=== PATIENT | male | born 1940 | race Caucasian/White ===

== ENCOUNTER 2023-11-18 10:19 | Inpatient (IN) | payer MEDICARE ==
[2023-11-18] MEDS ORDERED: Ondansetron ODT 4 MG TAB PO PRN (14:55)
[2023-11-18] MEDS ORDERED: Ondansetron PF 4 MG/2 ML Vial IVP PRN (14:55)
[2023-11-18] MEDS ORDERED: Acetaminophen 650 MG Suppository PR PRN (14:55)
[2023-11-18] MEDS ORDERED: Senokot S 8.6-50 MG TAB PO PRN (14:55)
[2023-11-18] MEDS ORDERED: Bisacodyl 10 MG SUPP PR PRN (14:55)
[2023-11-18] MEDS ORDERED: Electrolyte Replacement Protocol 1 EACH FS SCH (15:15)
[2023-11-18] MEDS ORDERED: Ventolin HFA Inhaler 60 PUFF INHALER INH PRN (15:31)
[2023-11-18 16:07] LABS: Magnesium 1.7 mg/dL (1.6-2.6)
[2023-11-18] MEDS: methylPREDNISolone Sod Succ 40 MG VIAL IVP SCH (16:12)
[2023-11-18] MEDS: Magnesium 2 GM/50 ML(in water) 2 GM in Premix 1 BAG IVPB SCH (16:12)
[2023-11-18] MEDS: LevoFLOXacin 750 mg/D5W 750 MG in Premix 1 BAG IVPB SCH (16:12)
[2023-11-18] MEDS: Furosemide 40 MG (4 mL) VIAL SLOW IVP SCH (16:13)
[2023-11-18] MEDS: Mometasone/Formoterol 200/5 60 PUFF INH SCH (20:50)
[2023-11-18] MEDS: Ipratropium/Albuterol 3 ML NEB NEB SCH (20:50)
[2023-11-18] MEDS ORDERED: FLU VACC QS2023(65UP)/MF59C/PF 60 MCG/0.5 ML SYRINGE IM ONE (21:30)
[2023-11-18] MEDS: Famotidine/PF 20 mg/2ml Vial SLOW IVP SCH (22:06)
[2023-11-18] MEDS: Apixaban 2.5 MG TAB PO SCH (22:27)
[2023-11-18] MEDS: Atorvastatin Calcium 10 MG TAB PO SCH (22:27)
[2023-11-19 06:04] LABS: #Monocytes 0.7 10x3/uL (0.0-1.1); #Neutrophils 7.9 10x3/uL (1.5-8.4); %Basophils 0.2 % (0.0-2.0); %Eosinophils 0.1 % (0.0-6.0); %Lymphocytes 15.8 % (18.0-47.0); %Monocytes 6.8 % (0.0-10.0); %Neutrophils 76.7 % (40.0-75.0); Hematocrit 35.5 % (38.8-50.0); Hemoglobin 11.8 g/dL (13.5-17.5); Mean Corpuscular HGB CONC 33.2 g/dL (32.0-36.0); Mean Corpuscular Hemoglobin 27.6 pg (27.0-33.0); Mean Corpuscular Volume 83.1 fl (81.2-95.1); Mean Platelet Volume 9.3 fl (7.4-10.4); Platelet Count 475 10x3/uL (150-450); RBC Distribution Width 16.9 % (11.5-14.5); Red Blood Cell (RBC) Count 4.27 10x6/uL (4.32-5.72); White Blood Cell (WBC) Count 10.3 10x3/uL (3.5-10.5)
[2023-11-19 06:06] LABS: Phosphorus 4.5 mg/dL (2.3-4.7)
[2023-11-19 06:08] LABS: Anion Gap 19 mmol/L (10-20); BUN (Urea Nitrogen) 23 mg/dL (8.4-25.7); Calc. Creatinine Clearance 29 mL/min (70-130); Calcium 8.4 mg/dL (7.8-10.44); Carbon Dioxide 20 mmol/L (23-31); Chloride 106 mmol/L (98-107); Estimated GFR 34; Glucose 119 mg/dL (83-110); Potassium 3.6 mmol/L (3.5-5.1); Sodium 141 mmol/L (136-145)
[2023-11-19] MEDS: Furosemide 40 MG (4 mL) VIAL SLOW IVP SCH (09:35)
[2023-11-19] MEDS: methylPREDNISolone Sod Succ 40 MG VIAL IVP SCH (09:35)
[2023-11-19] MEDS: Dutasteride 0.5 MG CAP PO SCH (09:37)
[2023-11-19] MEDS: Famotidine/PF 20 mg/2ml Vial SLOW IVP SCH (21:50)
[2023-11-19] MEDS: QUEtiapine 25 MG TAB PO SCH (21:51)
[2023-11-20 06:44] LABS: #Monocytes 0.7 10x3/uL (0.0-1.1); #Neutrophils 12.3 10x3/uL (1.5-8.4); %Basophils 0.1 % (0.0-2.0); %Lymphocytes 7.6 % (18.0-47.0); Hematocrit 33.4 % (38.8-50.0); Hemoglobin 11.5 g/dL (13.5-17.5); Mean Corpuscular HGB CONC 34.4 g/dL (32.0-36.0); Mean Corpuscular Hemoglobin 28.7 pg (27.0-33.0); Mean Corpuscular Volume 83.3 fl (81.2-95.1); Mean Platelet Volume 9.3 fl (7.4-10.4); Platelet Count 443 10x3/uL (150-450); RBC Distribution Width 17.1 % (11.5-14.5); Red Blood Cell (RBC) Count 4.01 10x6/uL (4.32-5.72); White Blood Cell (WBC) Count 14.2 10x3/uL (3.5-10.5)
[2023-11-20 07:05] LABS: Anion Gap 16 mmol/L (10-20); BUN (Urea Nitrogen) 29 mg/dL (8.4-25.7); Calc. Creatinine Clearance 27 mL/min (70-130); Calcium 8.6 mg/dL (7.8-10.44); Carbon Dioxide 22 mmol/L (23-31); Chloride 107 mmol/L (98-107); Estimated GFR 31; Glucose 156 mg/dL (83-110); Magnesium 2.1 mg/dL (1.6-2.6); Potassium 3.3 mmol/L (3.5-5.1); Sodium 142 mmol/L (136-145)
[2023-11-20] MEDS: Potassium Chloride 20 MEQ TAB PO SCH (10:02)
[2023-11-20] MEDS: Multivitamin W/ Minerals 1 TAB PO SCH (10:02)
[2023-11-20] MEDS: Aspirin 81 mg Enteric Coated Tablet PO SCH (10:02)
[2023-11-20] MEDS: LevoFLOXacin 500 mg/D5W 500 MG in Premix 1 BAG IVPB SCH (17:19)
[2023-11-20] MEDS: Acetaminophen 325 MG TAB PO PRN (21:44)
[2023-11-21 06:05] LABS: Anion Gap 19 mmol/L (10-20); BUN (Urea Nitrogen) 32 mg/dL (8.4-25.7); Calc. Creatinine Clearance 25 mL/min (70-130); Calcium 8.4 mg/dL (7.8-10.44); Carbon Dioxide 20 mmol/L (23-31); Chloride 107 mmol/L (98-107); Estimated GFR 31; Glucose 122 mg/dL (83-110); Potassium 3.2 mmol/L (3.5-5.1); Sodium 143 mmol/L (136-145)
[2023-11-21 06:09] LABS: #Monocytes 1.5 10x3/uL (0.0-1.1); #Neutrophils 13.3 10x3/uL (1.5-8.4); %Basophils 0.1 % (0.0-2.0); %Lymphocytes 9.6 % (18.0-47.0); %Monocytes 8.8 % (0.0-10.0); %Neutrophils 80.9 % (40.0-75.0); Hemoglobin 11.1 g/dL (13.5-17.5); Mean Corpuscular HGB CONC 32.6 g/dL (32.0-36.0); Mean Corpuscular Hemoglobin 27.8 pg (27.0-33.0); Mean Platelet Volume 9.5 fl (7.4-10.4); Platelet Count 469 10x3/uL (150-450); RBC Distribution Width 17.8 % (11.5-14.5); White Blood Cell (WBC) Count 16.5 10x3/uL (3.5-10.5)
[2023-11-21] MEDS ORDERED: Potassium Chloride 20 MEQ TAB PO SCH (08:00)
[2023-11-21] MEDS: Potassium Bicarbonate/Cit Ac 20 MEQ TAB PO SCH (09:42)
[2023-11-21] MEDS: predniSONE 20 MG TAB PO SCH (09:44)
[2023-11-21] MEDS: Amlodipine 5 MG TAB PO SCH (09:45)
[2023-11-21] MEDS: Tamsulosin HCl 0.4 MG CAP PO SCH ×2 (09:47→20:58)
[2023-11-21] MEDS: 1/2 NS IV SCH (09:55)
[2023-11-21] MEDS: POTASSIUM IV SCH (09:55)
[2023-11-21] MEDS: Lansoprazole 3 MG/ML ORAL SUSPENSION PO SCH (11:58)
[2023-11-21] MEDS: QUEtiapine 25 MG TAB PO SCH (15:20)
[2023-11-21] MEDS ORDERED: Electrolyte Replacement Protocol FS PRN (17:45)
[2023-11-21] MEDS: Metoprolol Tartrate 25 MG TAB PO SCH (20:58)
[2023-11-22 05:59] LABS: Anion Gap 14 mmol/L (10-20); BUN (Urea Nitrogen) 29 mg/dL (8.4-25.7); Calc. Creatinine Clearance 30 mL/min (70-130); Calcium 8.3 mg/dL (7.8-10.44); Carbon Dioxide 24 mmol/L (23-31); Chloride 110 mmol/L (98-107); Estimated GFR 38; Glucose 114 mg/dL (83-110); Potassium 3.9 mmol/L (3.5-5.1); Sodium 144 mmol/L (136-145)
[2023-11-22 06:06] LABS: #Monocytes 1.5 10x3/uL (0.0-1.1); #Neutrophils 11.2 10x3/uL (1.5-8.4); %Basophils 0.2 % (0.0-2.0); %Eosinophils 0.1 % (0.0-6.0); %Lymphocytes 13.8 % (18.0-47.0); %Monocytes 9.9 % (0.0-10.0); %Neutrophils 75.3 % (40.0-75.0); Hematocrit 38.8 % (38.8-50.0); Hemoglobin 12.3 g/dL (13.5-17.5); Mean Corpuscular HGB CONC 31.7 g/dL (32.0-36.0); Mean Corpuscular Hemoglobin 27.2 pg (27.0-33.0); Mean Corpuscular Volume 85.7 fl (81.2-95.1); Mean Platelet Volume 9.1 fl (7.4-10.4); Platelet Count 455 10x3/uL (150-450); RBC Distribution Width 18.1 % (11.5-14.5); Red Blood Cell (RBC) Count 4.53 10x6/uL (4.32-5.72); White Blood Cell (WBC) Count 14.8 10x3/uL (3.5-10.5)
[2023-11-22] MEDS: Aspirin Chewable 81 MG TAB PO SCH (08:39)
[2023-11-22] MEDS: Lansoprazole 3 MG/ML ORAL SUSPENSION PO SCH (15:12)
[2023-11-22] MEDS: hydrALAZINE 20 MG/ML VIAL SLOW IVP PRN (15:13)
[2023-11-23 05:14] LABS: #Monocytes 1.8 10x3/uL (0.0-1.1); #Neutrophils 13.9 10x3/uL (1.5-8.4); %Basophils 0.2 % (0.0-2.0); %Eosinophils 0.1 % (0.0-6.0); %Monocytes 9.8 % (0.0-10.0); %Neutrophils 77.9 % (40.0-75.0); Hematocrit 36.7 % (38.8-50.0); Hemoglobin 12.3 g/dL (13.5-17.5); Mean Corpuscular HGB CONC 33.5 g/dL (32.0-36.0); Mean Corpuscular Hemoglobin 28.3 pg (27.0-33.0); Mean Corpuscular Volume 84.6 fl (81.2-95.1); Mean Platelet Volume 9.5 fl (7.4-10.4); Platelet Count 464 10x3/uL (150-450); Red Blood Cell (RBC) Count 4.34 10x6/uL (4.32-5.72); White Blood Cell (WBC) Count 17.8 10x3/uL (3.5-10.5)
[2023-11-23 05:28] LABS: Albumin 2.9 g/dL (3.4-4.8); Anion Gap 15 mmol/L (10-20); BUN (Urea Nitrogen) 33 mg/dL (8.4-25.7); Calc. Creatinine Clearance 30 mL/min (70-130); Calcium 8.5 mg/dL (7.8-10.44); Carbon Dioxide 22 mmol/L (23-31); Chloride 111 mmol/L (98-107); Estimated GFR 38; Glucose 127 mg/dL (83-110); Potassium 3.2 mmol/L (3.5-5.1); Sodium 145 mmol/L (136-145)
[2023-11-23] MEDS: Potassium Chloride 20 MEQ TAB PO SCH (10:03)
[2023-11-24 07:35] LABS: Hematocrit 30.8 % (38.8-50.0); Hemoglobin 10.5 g/dL (13.5-17.5); Mean Corpuscular HGB CONC 34.1 g/dL (32.0-36.0); Mean Corpuscular Hemoglobin 28.8 pg (27.0-33.0); Mean Corpuscular Volume 84.4 fl (81.2-95.1); Mean Platelet Volume 9.6 fl (7.4-10.4); Platelet Count 455 10x3/uL (150-450); RBC Distribution Width 18.5 % (11.5-14.5); Red Blood Cell (RBC) Count 3.65 10x6/uL (4.32-5.72); White Blood Cell (WBC) Count 26.3 10x3/uL (3.5-10.5)
[2023-11-24 07:36] LABS: MDiff Complete? YES
[2023-11-24 08:04] LABS: Anion Gap 15 mmol/L (10-20); BUN (Urea Nitrogen) 46 mg/dL (8.4-25.7); Calc. Creatinine Clearance 23 mL/min (70-130); Calcium 8.3 mg/dL (7.8-10.44); Carbon Dioxide 23 mmol/L (23-31); Chloride 112 mmol/L (98-107); Estimated GFR 29; Glucose 129 mg/dL (83-110); Potassium 3.8 mmol/L (3.5-5.1); Sodium 146 mmol/L (136-145)
[2023-11-24 08:58] LABS: Band 2 % (5-11); Lymphocytes 7 % (21-51); Monocytes 8 % (0-10); Neutrophil 83 % (42-75)
[2023-11-24 09:01] LABS: Platelet Adequacy Comment Appears Increased
[2023-11-24 09:20] LABS: Burr Cells SLIGHT = 2-5 cells (100X) (0-1/hpf)
[2023-11-24] MEDS: cefTRIAXone\\ROCEPHIN 2 GM in Sodium Chloride 0.9% 100 ML IVPB SCH (16:23)
[2023-11-24] MEDS: Dextrose 5% in Water 500 ML IV SCH (16:48)
[2023-11-24] MEDS: metroNIDAZOLE 500 MG in Premix 1 BAG IVPB SCH (22:11)
[2023-11-25 06:52] LABS: #Monocytes 1.8 10x3/uL (0.0-1.1); #Neutrophils 20.4 10x3/uL (1.5-8.4); %Basophils 0.2 % (0.0-2.0); %Lymphocytes 9.4 % (18.0-47.0); %Monocytes 7.1 % (0.0-10.0); %Neutrophils 82.5 % (40.0-75.0); Hematocrit 32.3 % (38.8-50.0); Hemoglobin 10.7 g/dL (13.5-17.5); Mean Corpuscular HGB CONC 33.1 g/dL (32.0-36.0); Mean Corpuscular Hemoglobin 28.1 pg (27.0-33.0); Mean Corpuscular Volume 84.8 fl (81.2-95.1); Mean Platelet Volume 9.8 fl (7.4-10.4); Platelet Count 437 10x3/uL (150-450); RBC Distribution Width 18.6 % (11.5-14.5); Red Blood Cell (RBC) Count 3.81 10x6/uL (4.32-5.72); White Blood Cell (WBC) Count 24.7 10x3/uL (3.5-10.5)
[2023-11-25 06:58] LABS: Anion Gap 17 mmol/L (10-20); BUN (Urea Nitrogen) 56 mg/dL (8.4-25.7); Calc. Creatinine Clearance 19 mL/min (70-130); Calcium 8.3 mg/dL (7.8-10.44); Carbon Dioxide 23 mmol/L (23-31); Chloride 115 mmol/L (98-107); Estimated GFR 23; Glucose 116 mg/dL (83-110); Potassium 3.7 mmol/L (3.5-5.1)
[2023-11-25 07:06] LABS: Critical Call Chemistry NUR.JP14 @0704; Sodium 151 mmol/L (136-145)
[2023-11-25] MEDS: Dextrose 5 %-0.45 % NaCl 1,000 ML IV SCH (10:05)
[2023-11-26 04:59] LABS: #Monocytes 1.7 10x3/uL (0.0-1.1); #Neutrophils 17.3 10x3/uL (1.5-8.4); %Basophils 0.1 % (0.0-2.0); %Eosinophils 0.1 % (0.0-6.0); %Lymphocytes 8.5 % (18.0-47.0); %Neutrophils 82.2 % (40.0-75.0); Hematocrit 29.5 % (38.8-50.0); Hemoglobin 9.5 g/dL (13.5-17.5); Mean Corpuscular HGB CONC 32.2 g/dL (32.0-36.0); Mean Corpuscular Hemoglobin 27.7 pg (27.0-33.0); Mean Platelet Volume 9.4 fl (7.4-10.4); Platelet Count 391 10x3/uL (150-450); RBC Distribution Width 18.7 % (11.5-14.5); Red Blood Cell (RBC) Count 3.43 10x6/uL (4.32-5.72); White Blood Cell (WBC) Count 21.1 10x3/uL (3.5-10.5)
[2023-11-26 05:12] LABS: ALT (SGPT) 19 U/L (8-55); AST (SGOT) 32 U/L (5-34); Albumin 2.5 g/dL (3.4-4.8); Alkaline Phosphatase 104 U/L (40-110); Anion Gap 17 mmol/L (10-20); BUN (Urea Nitrogen) 54 mg/dL (8.4-25.7); Bilirubin, Total 0.6 mg/dL (0.2-1.2); Calc. Creatinine Clearance 19 mL/min (70-130); Calcium 7.7 mg/dL (7.8-10.44); Carbon Dioxide 21 mmol/L (23-31); Chloride 116 mmol/L (98-107); Estimated GFR 24; Globulin 2.5 g/dL (2.4-3.5); Glucose 139 mg/dL (83-110); Potassium 3.1 mmol/L (3.5-5.1)
[2023-11-26 05:15] LABS: Sodium 151 mmol/L (136-145)
[2023-11-26] MEDS: Potassium Chloride 20 MEQ in Premix 1 BAG IVPB SCH (08:46)
[2023-11-26 09:49] VITALS: BMI 21.4
[2023-11-27 12:08] VITALS: BP 130/60; TEMP 97.7
[2023-11-27] MEDS: Lorazepam 2 MG/ML VIAL SLOW IVP PRN (12:27)
== END 2023-11-27 14:27 | disposition hospice, inpatient (51) | DRG 91 ==
LOC: CSHTELE 10:19 → INTOOBSV 10:19 → OBSVTOIN 11-19 18:20
PROVIDERS: ADMIT Hospitalist; ATTEND Hospitalist
DX: G92.8 Other toxic encephalopathy (principal); I50.43 Acute on chronic combined systolic (congestive) and diastolic (congestive) heart failure; J69.0 Pneumonitis due to inhalation of food and vomit; I13.0 Hypertensive heart and chronic kidney disease with heart failure and stage 1 through stage 4 chronic kidney disease, or unspecified chronic kidney disease; J44.1 Chronic obstructive pulmonary disease with (acute) exacerbation; I48.20 Chronic atrial fibrillation, unspecified; F03.92 Unspecified dementia, unspecified severity, with psychotic disturbance; N17.9 Acute kidney failure, unspecified; E78.5 Hyperlipidemia, unspecified; Z66 Do not resuscitate; Z51.5 Encounter for palliative care; I48.91 Unspecified atrial fibrillation; N20.0 Calculus of kidney; F03.90 Unspecified dementia, unspecified severity, without behavioral disturbance, psychotic disturbance, mood disturbance, and anxiety; I95.1 Orthostatic hypotension; N18.30 Chronic kidney disease, stage 3 unspecified; R53.81 Other malaise; N40.0 Benign prostatic hyperplasia without lower urinary tract symptoms; R33.9 Retention of urine, unspecified; R13.12 Dysphagia, oropharyngeal phase; Z96.653 Presence of artificial knee joint, bilateral; Z91.148 Patient's other noncompliance with medication regimen for other reason; Z88.0 Allergy status to penicillin; Z79.82 Long term (current) use of aspirin; Z79.899 Other long term (current) drug therapy; Z98.890 Other specified postprocedural states
CPT/HCPCS: 36415; 70450; 71045; 74230; 80048; 80053; 82040; 83605; 83735; 84100; 84132; 84145; 85025; 87040; 93306; 94640; 94760; 94762; J0360; J0696; J1940; J1956; J2060; J2920; J3475; J3480; J3490; J7042; J7070; J7512; J7620; S0028